=== PATIENT | female | born 2000 | race Caucasian/White ===

== ENCOUNTER 2022-01-26 08:32 | Inpatient (IN) ==
[2022-01-26] MEDS ORDERED: Metoclopramide 10 MG/2 ML VIAL IVP PRN (08:38)
[2022-01-26] MEDS ORDERED: *HR* Nalbuphine 10 MG/ML AMPUL IV PRN (08:38)
[2022-01-26] MEDS ORDERED: Naloxone 0.4 MG/ML INJ IVP PRN (08:38)
[2022-01-26] MEDS ORDERED: Famotidine 20 MG/2 ML VIAL IVP PRN (08:38)
[2022-01-26] MEDS ORDERED: Ringers Solution, Lactated 1,000 ML IVC SCH (08:45)
[2022-01-26] MEDS ORDERED: *HR* Nalbuphine 10 MG/ML AMPUL ONE (08:56)
[2022-01-26] MEDS ORDERED: Ringers Solution, Lactated 1,000 ML ONE (08:58)
[2022-01-26 09:22] LABS: Basophils % 0.2 %; Eosinophils % 0.1 %; Hematocrit 40.6 % (35.3-44.9); Hemoglobin 13.8 g/dL (11.5-15.4); Immature Granulocytes % 0.3 % (0-4); Lymphocytes % 14.9 %; Mean Corpuscular Hemoglobin 31.1 pg (28.0-33.3); Mean Corpuscular Volume 91.4 fL (83.0-100.0); Mean Platelet Volume 12.5 fL (9.4-12.4); Monocytes # 0.9 K/mcL (0.0-1.3); Monocytes % 6.5 %; Neutrophils # 10.5 K/mcL (1.6-8.9); Platelet Count 184 K/mcL (140-400); Red Blood Count 4.44 M/mcL (3.82-4.97); Red Cell Distribution Width 13.3 % (11.5-14.5); White Blood Count 13.4 K/mcL (4.3-11.1)
[2022-01-26] MEDS ORDERED: Ropivacaine/PF 0.2% 20 ML VIAL EP ONE (09:25)
[2022-01-26] MEDS ORDERED: *HR* FentaNYL (PF) 100 MCG/2 ML VIAL EP ONE (09:25)
[2022-01-26] MEDS ORDERED: EPHEDrine 50 MG/ML VIAL IVP PRN (09:25)
[2022-01-26] MEDS ORDERED: Epidural Premix (fent/bupiv) 110 ML EP ONE (09:29)
[2022-01-26] MEDS ORDERED: Epidural Premix (fent/bupiv) 110 ML EP SCH (09:30)
[2022-01-26] MEDS ORDERED: Oxytocin 30 UNIT/503 ML BAG IVC ONE (13:34)
[2022-01-26] MEDS ORDERED: Methylergonovine 0.2 MG/ML AMPUL IM ONE (15:29)
[2022-01-26] MEDS ORDERED: miSOPROStoL 100 MCG TABLET RC ONE (15:29)
[2022-01-26] MEDS ORDERED: Lanolin 7 G OINT...G. TP PRN (17:14)
[2022-01-26] MEDS ORDERED: Ondansetron ODT 4 MG TAB.RAPDIS SL PRN (17:14)
[2022-01-26] MEDS ORDERED: Oxytocin 30 UNIT/503 ML BAG IVC SCH (17:14)
[2022-01-26] MEDS ORDERED: Benzocaine/Menthol 56 GM AEROSOL SPRAY TP PRN (17:14)
[2022-01-26] MEDS: Acetaminophen 325 MG TABLET PO SCH (21:08)
[2022-01-26] MEDS: Ibuprofen 600 MG TABLET PO SCH (21:08)
[2022-01-27] MEDS: Ibuprofen 600 MG TABLET PO SCH (05:02)
[2022-01-27] MEDS: Acetaminophen 325 MG TABLET PO SCH (05:02)
[2022-01-27 06:16] LABS: Basophils % 0.2 %; Eosinophils % 0.2 %; Hematocrit 31.3 % (35.3-44.9); Immature Granulocytes % 0.4 % (0-4); Lymphocytes # 2.4 K/mcL (0.6-4.6); Lymphocytes % 20.2 %; Mean Corpuscular HGB Conc 32.9 g/dL (31.6-35.5); Mean Corpuscular Hemoglobin 31.3 pg (28.0-33.3); Mean Corpuscular Volume 95.1 fL (83.0-100.0); Mean Platelet Volume 12.2 fL (9.4-12.4); Monocytes # 1.2 K/mcL (0.0-1.3); Monocytes % 10.5 %; Platelet Count 143 K/mcL (140-400); Red Blood Count 3.29 M/mcL (3.82-4.97); Red Cell Distribution Width 13.9 % (11.5-14.5); Segmented Neutrophils % 68.5 %; White Blood Count 11.7 K/mcL (4.3-11.1)
[2022-01-27 06:18] LABS: Hemoglobin 10.3 g/dL (11.5-15.4)
[2022-01-27 07:19] VITALS: BP 89/53; PULSE 59; TEMP 98.1; O2SAT 98
[2022-01-27] MEDS ORDERED: Prenatal Vit/FA 1 EACH TABLET PO SCH (09:00)
[2022-01-27] MEDS ORDERED: Rho Immune Globulin 1,500 UNIT SYRINGE IM ONE (13:32)
== END 2022-01-27 15:30 | disposition home or self-care (01) | DRG 806 ==
LOC: 1NENULAB 08:32 → 1NENUOBS 17:14
PROVIDERS: ADMIT Obstetrics & Gynecology; ATTEND Obstetrics & Gynecology